=== PATIENT | female | born 1950 | race Caucasian/White ===

== ENCOUNTER → 2016-09-28 | Day surgery (SDC) | payer OTHER ==
[~2016-09-28] MED LIST: BUPIVACAINE/EPINEPHRINE 0.5% PF 10 ML VIAL ONE; EPINEPHrine HCL (1:1000) 1 MG/ML VIAL OTHER ONE; FLON0.053; LACTATED RINGER'S 1000 ML INJ 1,000 ML ONE; MIDAZOLAM HCL 2 MG/2 ML VIAL ONE; ONDANSETRON HCL 4 MG/2 ML VIAL IV PUSH ONE; PROPOFOL 200 MG/20 ML AMP IV ONE; ceFAZolin INJ 1,000 MG VIAL ONE
--- NOTE | 2016-09-28 21:04 | MP ---
cc: STEVAN ZIMMERMAN DATE OF SURGERY: 09/28/2016. PREOPERATIVE DIAGNOSIS: Right knee medial and lateral meniscus tear. POSTOPERATIVE DIAGNOSES Right knee medial and lateral meniscus tear. OPERATIVE PROCEDURE PERFORMED: Right knee arthroscopic partial medial and lateral meniscectomy. SURGEON: Dr. Stevan Zimmerman. ANESTHESIA: General. ESTIMATED BLOOD LOSS: Less than 10 cc. TOURNIQUET TIME: Zero minutes. COMPLICATIONS: None. JUSTIFICATION FOR THE PROCEDURE: This patient is a 66-year-old female with significant pain as related to the right knee. She has failed conservative treatment. Clinical exam as well as MRI confirmed the above-named findings. The patient was counseled as to the risks, benefits, and alternatives to the above-named surgical procedure. She did wish to surgery. DESCRIPTION OF THE PROCEDURE IN DETAIL: A written consent was obtained. The patient was identified by name and taken to the operating room and placed in the supine position. General anesthesia was administered as well as 1 gram of IV Ancef. The right thigh was carefully placed in a well-padded leg vee. All bony pounds and pressure points were well padded. The right lower extremity was then prepped and draped using isopropyl alcohol, Hibiclens solution and DuraPrep solution. After a time-out was performed, a standard medial lateral parapatellar arthroscope portal was established. The patellofemoral joint revealed minimal chondromalacia. The medial compartment revealed large complex tear of the clinical operations manager horn of the medial meniscus. An arthroscopic biter followed by an arthroscopic shaver was introduced into the medial compartment to perform a partial medial meniscectomy. The meniscal rim was probed and noted be stable. 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 The intercondylar notch revealed the anterior and posterior cruciate ligaments to be intact. The lateral compartment revealed a large complex tear of the lateral meniscus extending into the anterior and posterior horns. An arthroscopic biter followed by an arthroscopic shaver was introduced into the lateral compartment to perform a partial lateral meniscectomy. Again, the meniscal rim was probed and noted to be stable after the meniscectomy. At the conclusion of the surgical procedure, 30 mL 0.5% Marcaine with epinephrine was injected into the knee joint. The arthroscopic portals were closed with 3-0 Prolene suture. Sterile dressings were applied. The patient tolerated the procedure well. No intraoperative complications were noted. MD ROSANGELA Avendaño/JESSIE /11:38 AM /9:00 PM
== END | disposition home or self-care (01) ==
LOC: ESDC 09:12
PROVIDERS: ATTEND Orthopaedic Surgery Sports Medicine
DX: S83.231A Complex tear of medial meniscus, current injury, right knee, initial encounter (principal); S83.271A Complex tear of lateral meniscus, current injury, right knee, initial encounter
CPT/HCPCS: 01400; 29880; J0171; J0690; J2250; J2405; J3010; J7120